=== PATIENT | female | born 1995 | race Caucasian/White ===

== ENCOUNTER 2021-06-08 13:37 | Emergency (ER) | payer MEDICAID ==
[~2021-06-08] VITALS: Ht 165.1 cm; Wt 91.4 kg
[2021-06-08 13:41] VITALS: BP 141/55
--- NOTE | 2021-06-08 13:50 | NUR ---
Dr. Lama at bedside evaluating patient.
--- NOTE | 2021-06-08 14:02 | NUR ---
CPT at bedside drawing labs.
--- NOTE | 2021-06-08 14:12 | NUR ---
Ultrasound at bedside.
--- NOTE | 2021-06-08 14:12 | NUR ---
26 y/o female came in for clinic referral. Per patient "She went to a free clinic saturday and was told she is with two fetuses at different gestational ages." Patient is experiencing abdominal cramping. Medical History: Denies NKDA
[2021-06-08 14:17] LABS: BASOPHILS % (AUTO) 0.1 % (0.0-2.0); EOSINOPHILS # (AUTO) 0.3 K/uL (0-0.4); EOSINOPHILS % (AUTO) 2.8 % (0.0-4.0); HEMATOCRIT 33.8 % (36-48); HEMOGLOBIN 11.6 g/dL (12.0-16.0); LYMPHOCYTES # (AUTO) 2.5 K/uL (2.5-16.5); MEAN CORPUSCULAR HEMOGLOBIN 30 pg (27-31); MEAN CORPUSCULAR HGB CONC 34 g/dL (33-37); MEAN CORPUSCULAR VOLUME 88.5 fL (80-94); MONOCYTES # (AUTO) 0.5 K/uL (0.8-1.0); MONOCYTES % (AUTO) 5.3 % (1.7-9.3); NEUTROPHILS # (AUTO) 6.3 K/uL (1.8-7.7); NEUTROPHILS % (AUTO) 65.8 % (42.2-75.2); PLATELET COUNT (AUTO) 409 K/uL (140-450); RED BLOOD CELL COUNT(AUTO) 3.82 MIL/uL (4.20-5.40); RED CELL DISTRIBUTION WIDTH 14.5 % (11.6-13.7); WHITE BLOOD COUNT (AUTO) 9.5 K/uL (4.8-10.8)
[2021-06-08 14:44] LABS: ALBUMIN 3.2 g/dL (3.4-5.0); CARBON DIOXIDE 25.7 mmol/L (21-32); CREATININE 0.5 mg/dL (0.6-1.3); POTASSIUM 3.7 mmol/L (3.5-5.1); TOTAL BILIRUBIN 0.4 mg/dL (0.0-1.0)
[2021-06-08 16:18] LABS: APPEARANCE,URINE CLOUDY (CLEAR); BILIRUBIN,URINE NEGATIVE (NEGATIVE); BLOOD, URINE NEGATIVE (NEGATIVE); COLOR,URINE YELLOW (YELLOW); LEUKOCYTE ESTERASE ,URINE TRACE (NEGATIVE); NITRITE, URINE NEGATIVE (NEGATIVE); UGLUCOSE NEGATIVE (NEGATIVE)
[2021-06-08 16:31] LABS: RBC,URINE NONE SEEN /HPF (0-5); URINE AMORPHOUS URATE 4+ /HPF (None Seen)
[2021-06-08] MEDS ORDERED: DOXY1TCP PO (17:12)
[2021-06-08] MEDS ORDERED: FAMO-90 PO (17:12)
[2021-06-08 17:23] VITALS: BP 101/44
--- NOTE | 2021-06-08 17:24 | NUR ---
Patient discharged with v/s stable. Written and verbal after care instructions given. Patient alert, oriented and verbalized understanding of instructions. Ambulatory with steady gait. All questions addressed prior to discharge. ID band removed. Patient advised to follow up with PMD. Rx of Doxylamine/Pyridoxine and Pepcid given. Opportunity to ask questions provided and answered.
[2021-06-08] MEDS ORDERED: CEPH-588 PO (19:18)
== END 2021-06-08 17:23 | disposition home or self-care (01) ==
LOC: MED 13:37
DX: O23.41 Unspecified infection of urinary tract in pregnancy, first trimester (principal); O21.8 Other vomiting complicating pregnancy; O99.011 Anemia complicating pregnancy, first trimester; Z3A.01 Less than 8 weeks gestation of pregnancy; Z79.899 Other long term (current) drug therapy
CPT/HCPCS: 36415; 76801; 80053; 81001; 81025; 84702; 85025; 86886; 86900; 86901; 87086; 99284; Q0092

== ENCOUNTER 2021-06-28 08:04 | Emergency (ER) | payer OTHER, MEDICAID ==
[~2021-06-28] VITALS: Ht 165.1 cm; Wt 93.2 kg
[~2021-06-28 08:04] MED LIST: CEPH-588 PO; DOXY1TCP PO; FAMO-90 PO
[2021-06-28 08:11] VITALS: BP 119/67
--- NOTE | 2021-06-28 08:18 | NUR ---
PT AMB TO BED 11.
--- NOTE | 2021-06-28 08:21 | NUR ---
PT AMBULATED TO BATHROOM WITH STEADY GAIT
--- NOTE | 2021-06-28 08:58 | NUR ---
WALKED UA TO LAB HANDED TO MASSIMO
--- NOTE | 2021-06-28 08:59 | NUR ---
US AT BEDSIDE
[2021-06-28 09:25] LABS: APPEARANCE,URINE SL CLOUDY (CLEAR); BILIRUBIN,URINE NEGATIVE (NEGATIVE); BLOOD, URINE TRACE-I (NEGATIVE); COLOR,URINE YELLOW (YELLOW); LEUKOCYTE ESTERASE ,URINE 1+ (NEGATIVE); NITRITE, URINE NEGATIVE (NEGATIVE); UGLUCOSE NEGATIVE (NEGATIVE)
[2021-06-28 09:35] LABS: RBC,URINE 0-5 /HPF (0-5)
[2021-06-28 09:36] LABS: WBC,URINE 0-5 /HPF (0-5)
[2021-06-28 09:37] LABS: CALCIUM OXALATE CRYSTALS,UR None Seen /HPF (None Seen); TRICHOMONAS,URINE None Seen /HPF (None Seen); YEAST,URINE None Seen /HPF (None Seen)
[2021-06-28 09:38] LABS: COARSE GRANULAR CASTS,URINE None Seen /LPF (None Seen); FINE GRANULAR CASTS,URINE None Seen /LPF (None Seen); HYALINE CASTS, URINE None Seen /LPF (None Seen); OTHER CASTS, URINE None Seen /LPF (None Seen); OTHER CRYSTALS,URINE None Seen /HPF (None Seen); RED BLOOD CELL CASTS,URINE None Seen /LPF (None Seen); TRIPLE PHOSPHATE CRYSTAL,UR None Seen /HPF (None Seen); URIC ACID CRYSTALS,URINE None Seen /HPF (None Seen); URINE AMORPHOUS URATE None Seen /HPF (None Seen); WAXY CASTS,URINE None Seen /LPF (None Seen)
[2021-06-28 10:05] LABS: BASOPHILS % (AUTO) 0.2 % (0.0-2.0); EOSINOPHILS # (AUTO) 0.7 K/uL (0-0.4); EOSINOPHILS % (AUTO) 5.3 % (0.0-4.0); HEMOGLOBIN 11.8 g/dL (12.0-16.0); LYMPHOCYTES # (AUTO) 1.7 K/uL (2.5-16.5); LYMPHOCYTES % (AUTO) 13.3 % (20.5-51.1); MEAN CORPUSCULAR HEMOGLOBIN 31 pg (27-31); MEAN CORPUSCULAR HGB CONC 34 g/dL (33-37); MEAN CORPUSCULAR VOLUME 90.2 fL (80-94); MONOCYTES # (AUTO) 0.8 K/uL (0.8-1.0); MONOCYTES % (AUTO) 5.8 % (1.7-9.3); NEUTROPHILS # (AUTO) 9.8 K/uL (1.8-7.7); NEUTROPHILS % (AUTO) 75.4 % (42.2-75.2); PLATELET COUNT (AUTO) 452 K/uL (140-450); RED BLOOD CELL COUNT(AUTO) 3.88 MIL/uL (4.20-5.40); RED CELL DISTRIBUTION WIDTH 17.1 % (11.6-13.7); WHITE BLOOD COUNT (AUTO) 12.9 K/uL (4.8-10.8)
[2021-06-28 10:20] LABS: ALBUMIN 3.3 g/dL (3.4-5.0); ANION GAP 12.9 (8-16); CARBON DIOXIDE 26.6 mmol/L (21-32); CREATININE 0.6 mg/dL (0.6-1.3); POTASSIUM 3.5 mmol/L (3.5-5.1); TOTAL BILIRUBIN 0.7 mg/dL (0.0-1.0)
[2021-06-28 11:00] VITALS: BP 138/74
[2021-06-28] MEDS ORDERED: CEPH-588 PO (11:40)
[2021-06-28] MEDS ORDERED: cephALEXin 500 MG CAP PO ONE (11:45)
--- NOTE | 2021-06-28 12:01 | NUR ---
Patient discharged with v/s stable. Written and verbal after care instructions ABOUT UTI given and explained. Patient alert, oriented and verbalized understanding of instructions. Ambulatory with steady gait. All questions addressed prior to discharge. ID band removed. Patient advised to follow up with PMD. Rx of KEFLEX given. Patient educated on indication of medication including possible reaction and side effects. Opportunity to ask questions provided and answered.
== END 2021-06-28 12:00 | disposition home or self-care (01) ==
LOC: MED 08:04
DX: O23.41 Unspecified infection of urinary tract in pregnancy, first trimester (principal); O99.019 Anemia complicating pregnancy, unspecified trimester; O26.891 Other specified pregnancy related conditions, first trimester; Z20.822 Contact with and (suspected) exposure to COVID-19; Z3A.11 11 weeks gestation of pregnancy
CPT/HCPCS: 36415; 76801; 80053; 81001; 83690; 84702; 85025; 87086; 87426; 99284; Q0092

== ENCOUNTER 2021-08-20 15:00 | Emergency (ER) | payer OTHER, MEDICAID ==
[~2021-08-20] VITALS: Ht 165.1 cm; Wt 90.7 kg
[2021-08-20 15:02] VITALS: BP 106/74
--- NOTE | 2021-08-20 15:35 | NUR ---
26 Y/O F C/O LOWER ABDOMINAL PAIN SINCE THIS MORNING. PT STATES SHE IS CURRENTLY 17 WEEKS . DENIES VAGINAL BLEEDING, N/V/D, PATIENT IS A0. PT DENIES CHEST PAIN, SOB. PT DENIES FEVER OR CHILLS. PT A&OX4. BED LOCKED IN LOWEST POSITION. BED RAIL X1. PMH: DENIES NKA
[2021-08-20] MEDS ORDERED: NITR100C7 PO (16:22)
[2021-08-20 16:37] VITALS: BP 110/72
== END 2021-08-20 16:38 | disposition home or self-care (01) ==
LOC: MED 15:00
DX: O23.42 Unspecified infection of urinary tract in pregnancy, second trimester (principal); Z3A.17 17 weeks gestation of pregnancy; Z79.899 Other long term (current) drug therapy
CPT/HCPCS: 81002; 81025; 99283

== ENCOUNTER 2021-12-13 14:30 | Observation (INO) | payer OTHER ==
[~2021-12-13] VITALS: Ht 165.1 cm; Wt 98.0 kg
[~2021-12-13 14:30] MED LIST changes: +NITR100C7 PO
[2021-12-13 14:40] VITALS: BP 121/66
[2021-12-13] MEDS ORDERED: PREN-543 PO (15:52)
== END 2021-12-13 17:00 | disposition home or self-care (01) ==
LOC: MLD 14:30
PROVIDERS: ADMIT Obstetrics & Gynecology; ATTEND Obstetrics & Gynecology
DX: O36.8130 Decreased fetal movements, third trimester, not applicable or unspecified (principal); Z20.822 Contact with and (suspected) exposure to COVID-19; Z3A.33 33 weeks gestation of pregnancy
CPT/HCPCS: 87426; G0378